=== PATIENT | male | born 1955 | race Caucasian/White ===

== ENCOUNTER 2021-09-25 05:03 | Observation (INO) ==
--- NOTE | 2021-08-28 10:25 | PAT Medication Instructions ---
Medication Instructions Date of Service August 28, 2021 Home Medications Factor 5 Otc 2 tab PO BID PRN Javid Otc 1 - 2 tab PO DAILY Nerve Support Otc 1 tab PO DAILY PRN [place] Q Otc 1 tab PO DAILY cyanocobalamin (vitamin B-12) 5,000 mcg capsule 5,000 mcg PO QPM omeprazole 20 mg capsule,delayed release 20 mg PO DAILY PRN STOP taking 2 weeks before surgery Factor 5 Otc 2 tab PO BID PRN [place] Otc 1 - 2 tab PO DAILY Nerve Support Otc 1 tab PO DAILY PRN [place] Q Otc 1 tab PO DAILY Take morning of surgery With a small sip of water, OTHERWISE NOTHING TO EAT OR DRINK AFTER MIDNIGHT: omeprazole 20 mg capsule,delayed release 20 mg PO DAILY PRN (if needed) Take evening before surgery cyanocobalamin (vitamin B-12) 5,000 mcg capsule 5,000 mcg PO QPM Other Notes If you have any questions please call us at [phone] or [phone] or [phone] or [phone]
--- NOTE | 2021-09-05 11:54 | Anesthesiology Consultation ---
Date of Service September 05, 2021 Assessment & Plan (1) Encounter for pre-operative examination: - PCP pre-op evaluation 09/09/2021 per S records. Optimization form included given 2017 hospitalization records for atrial fibrillation with RVR and documented concern for JEFFREY or COPD. Form to be faxed to PCP office, awaiting PCP clearance. - Simmons/facial hair: mu-ism reasons for patient, aware anesthesiologist may request trimming/shaving am DOS. He verbalized understanding, denied additional questions or concerns. - Patient states plan per discussion with surgeon is to stay overnight after surgery. - COVID screening: Per assessment on 09/05/2021: Travel screen negative, no known COVID-19 positive contacts or current COVID-19 related symptoms in past 2 weeks. Surgeon arranging preop COVID testing, scheduled 09/25/2021 PATRICK Alaniz. Awaiting results. Chart Review Chart Review: Pending: Refer to Additional Notes / Consult section and Patient seen in Pre Admission Testing Teaching & Discussion Pre-Anesthesia Teaching/Discussion Notes: Instructed NPO after midnight before surgery, except medications with 15 cc of water. Medication instructions provid ed according to the PAT guidelines. History Surgery Operation Date: 09/25/21 08:40 Proposed Procedures p Left Total Knee Arthroplasty - Vikram Abraham MD Height/Weight Height: 6 ft Weight: 115.7 kg Allergies Allergy/AdvReac Type Severity Reaction Status Date / Time No Known Allergies Allergy Verified 08/25/21 13:47 Medications Home Medications Medication Instructions Recorded Confirmed Last Taken Factor 5 Otc 2 tab PO BID PRN 08/25/21 08/25/21 Unknown Javid Otc 1 - 2 tab PO DAILY 08/25/21 08/25/21 Unknown Nerve Support Otc 1 tab PO DAILY PRN 08/25/21 08/25/21 Unknown [place] Q Otc 1 tab PO DAILY 08/25/21 08/25/21 Unknown cyanocobalamin (vitamin B-12) 5,000 mcg PO QPM 08/25/21 08/25/21 Unknown 5,000 mcg capsule omeprazole 20 mg capsule,delayed 20 mg PO DAILY PRN 08/25/21 08/25/21 Unknown release Past Medical History Medical History (Updated 09/05/21 @ 15:05 by Dulce Silvestre PA-C) Heartburn History of atrial fibrillation with RVR 05/2017, per [facility] records in setting of pneumonia, acute hypoxemic respiratory failure-Cardizem drip transitioned to oral on discharge w/o anticoagulation recommended-suspicion for JEFFREY or COPD-pt to f/u outpatient with cardio and pulm-last saw PCP 2018 Patient denies h/o stroke, seizures, heart attack, heart failure, DM, HTN, blood clots or blood transfusions. Exercise / Class Metabolic Activity II 4-5 Yardwork/Stairs/Walk up hill (denies CP or SOB with 1 FOS) Past Family History Family History Mother Family history of diabetes mellitus Other No known health problems Past Surgical History Surgical History History of herniorrhaphy LOCAL ANESTHESIA WITH SEDATION Past Anesthesia History No Hx of Anesthesia Complications and No Family Hx of Anesthesia Complications History of PONV No Hx of PONV and No Hx of Motion Sickness Social History Smoking Status: Former smoker (quit 5 yrs ago) Do You Dip or Chew Tobacco: No Hx Alcohol Use: No Hx Substance Use: No Review of Systems Patient denies chest pain, shortness of breath, dyspnea on exertion, snoring, witnessed apneas, fever, chills, cough, wheezing, or palpitations. Physical Exam Vital Signs Vitals BP 122/79 P 83 TEMP 98.7 SP02 95% on RA RESP 17 Physical Long simmons Full cervical extension range of motion without pain Full TMJ range of motion TMD 3.5 finger breaths Mallampati Score 3 Dentition: edentulous Lungs: normal respiratory effort. Clear throughout to auscultation, no adventitious breath sounds Cardiac: regular rate and rhythm, no murmurs noted Carotid arteries: negative bruit bilat Extremities: trace pitting edema distal lower extremities bilat Lab Results Anesthesia Preop Results Results Anesthesia Widget: WBC 8.01 K/uL (4.8-10.8) 09/05/21 Hgb 14.0 g/dL (14.0-18.0) 09/05/21 Hct 41.7 % (42-52) L 09/05/21 Plt 209 K/uL (130-400) 09/05/21 Na 137 mmol/L (136-145) 09/05/21 K 3.9 mmol/L (3.5-5.1) 09/05/21 Cl 103 mmol/L (98-107) 09/05/21 CO2 28 mmol/L (21-32) 09/05/21 BUN 15 mg/dl (6-23) 09/05/21 Creat 1.01 mg/dl (0.6-1.4) 09/05/21 Glucose Level 97 mg/dl (70-99(Fasting)) 09/05/21 PT 10.2 Seconds (9.0-12.0) 09/05/21 PTT 26.5 Seconds (21.0-31.0) 09/05/21 INR 1.0 (0.9-1.1) 09/05/21 HA1c 5.7 % (4.5-5.6) H 09/05/21 Urine Color Yellow 09/05/21 Urine Appearance Clear (Clear) 09/05/21 Urine pH 5.5 (4.5-7.5) 09/05/21 Urine Specific [place] 1.009 (1.000-1.030) 09/05/21 Urine Protein Negative (Negative) 09/05/21 Urine Glucose (UA) Negative (Negative) 09/05/21 Urine Ketones Negative (Negative) 09/05/21 Urine Blood Negative (Negative) 09/05/21 Urine Nitrite Negative (Negative) 09/05/21 Urine Bilirubin Negative (Negative) 09/05/21 Urine Urobilinogen Negative (Negative) 09/05/21 Urine Leukocyte Esterase 1+ (Negative) H 09/05/21 Urine WBC (Auto) 1-5 /hpf (0-5) 09/05/21 Urine RBC (Auto) 5-10 /hpf (0-4) H 09/05/21 Urine Hyaline Casts (Auto) 0 /lpf (0-5) 09/05/21 Urine Epithelial Cells (Auto) 0-5 /lpf (0-5) 09/05/21 Urine Bacteria (Auto) Negative (Negative) 09/05/21 Blood Type A Positive 09/05/21 Antibody Screen NEGATIVE 09/05/21 Testing Electrocardiogram Date: 09/05/21 Poor data quality NSR, rate 78 bpm RBBB Chest X-Ray Date: 09/05/21 FINDINGS: Frontal and lateral radiographs of the chest demonstrate the cardiomediastinal silhouette to be within normal limits. The lungs are hyperinflated with flattening of the hemidiaphragms and increase in the retrosternal space characteristic of underlying chronic obstructive pulmonary disease. The lungs are clear of alveolar opacities. There is no evidence for effusion bilaterally. There is no evidence for vascular congestion. There is no acute osseous pathology. IMPRESSION: 1. No acute cardiopulmonary disease. Evidence for underlying COPD Echocardiogram Date: 06/04/17 EF 55-59% No wall motion abnormalities Moderately enlarged left atrium Mild to moderate mitral regurgitation Dilated IVC Right atrium enlargement Diastolic left ventricular dysfunction Mild tricuspid regurgitation Mild pulmonary regurgitation
--- NOTE | 2021-09-24 07:18 | History & Physical Report ---
Date of Service September 24, 2021 Assessment & Plan (1) Primary osteoarthritis of left knee: Plan: Treatment options discussed with the patient. He has failed conservative measures and would like to proceed with knee replacement. Risks, benefits and alternatives to surgery including but not limited to infection, DVT, pain, stiffness, need for revision surgery, damage to blood vessels, damage to nerves, PE, , were discussed with the patient and they wish to proceed. Plan on left total knee arthroplasty on September 25, [address] Abraham at [facility]. We will plan on aspirin 81 mg twice daily for 1 month postop for DVT prophylaxis. We will likely plan on home health PT postop. All questions were answered. Patient will follow-up postop. History of Present Illness Chief Complaint: Left knee pain Primary Care Provider: NO PCP 65-year-old male with past medical history for GERD and history of A. fib in the past presents with longstanding history of bilateral knee pain. Left worse than the right. Patient severe arthritis bilaterally. Pain is interfering with his daily activities. He has failed conservative measures and would like to proceed with left total knee replacement. Patient denies headaches, sweats, fevers, chills, double vision, blurred vision, cough, sore throat, dysphagia, chest pain, sob, wheezing, n/v/d/c, numbness, tingling, fatigue, urinary symptoms, mood disorders. ROS positive for bilateral pain and stiffness. Allergies Allergy/AdvReac Type Severity Reaction Status Date / Time No Known Allergies Allergy Verified 08/25/21 13:47 Home Medications Medication Instructions Recorded Confirmed Type Factor 5 Otc 2 tab PO BID PRN 08/25/21 08/25/21 History [place] Otc 1 - 2 tab PO DAILY 08/25/21 08/25/21 History Nerve Support Otc 1 tab PO DAILY PRN 08/25/21 08/25/21 History [place] Q Otc 1 tab PO DAILY 08/25/21 08/25/21 History cyanocobalamin (vitamin B-12) 5,000 mcg PO QPM 08/25/21 08/25/21 History 5,000 mcg capsule omeprazole 20 mg capsule,delayed 20 mg PO DAILY PRN 08/25/21 08/25/21 History release Past Med/Surg History Medical History (Updated 09/24/21 @ 07:15 by Jas Bryson PA-C) Heartburn History of atrial fibrillation with RVR 05/2017, per [facility] records in setting of pneumonia, acute hypoxemic respiratory failure-Cardizem drip transitioned to oral on discharge w/o anticoagulation recommended-suspicion for JEFFREY or COPD-pt to f/u outpatient with cardio and pulm-last saw PCP 2018 Surgical History History of herniorrhaphy LOCAL ANESTHESIA WITH SEDATION Family History Mother Family history of diabetes mellitus Other No known health problems Social History (Updated 08/25/21 @ 14:07 by Abby Mayo RN) Smoking Status: Former smoker (quit 5 yrs ago) Second Hand Exposure: Yes ([employer]); Hx Alcohol Use: No Hx Substance Use: No Preferred Language: Pakistani Communication Ability: Effective Control Valve Mechanic Required: No Beliefs That Will Affect Care: Christianity Christianity Beliefs: [facility] Current Living Situation: Family Current Living Situation Comment: LIVES WITH SON,DAUGHTER current occupational status: employed current occupation: WORKS ON [employer] Feels Safe at Home: Yes Assistive Devices: Cane, Denture - Upper, Denture - Lower and Glasses Review of Systems All systems reviewed & are unremarkable except as noted in HPI & below Physical Exam Constitutional: well developed and well nourished; no acute distress Eyes: PERRL, conjunctivae normal, anicteric sclerae ENMT: external ear and nose normal, oropharynx normal Neck: trachea midline, no thyromegaly Respiratory: normal respiratory effort, lungs clear to auscultation Cardiovascular: RRR, no murmur, no edema Musculoskeletal: Left knee: Varus alignment, mild effusion. Tenderness medial joint line. ROM 0-125 degrees. Stable to valgus and varus stress Skin: no rashes, warm and dry Neurologic: patellar DTR's 2+ bilat, sensation intact Psychiatric: A+Ox3, euthymic affect Results & Data (MN) Diagnostic Findings Left knee radiographs: Varus alignment. Bone on bone medial compartment with bone loss medial tibial plateau. There is periarticular osteophyte formation and subchondral sclerosis. There is tricompartmental degenerative changes.
[2021-09-25] MEDS ORDERED: ACETAMINOPHEN 500 MG TAB PO SCH (06:00)
[2021-09-25] MEDS ORDERED: FAMOTIDINE 20 MG TAB PO SCH (06:00)
[2021-09-25] MEDS ORDERED: TRANEXAMIC ACID 1,000 MG **IV Intra-op IV SCH (06:00)
[2021-09-25] MEDS ORDERED: METOCLOPRAMIDE HCL 10 MG TABLET PO SCH (06:00)
[2021-09-25] MEDS ORDERED: ceFAZolin 2000MG 2,000 MG/15 ML SYR IV SCH (06:00)
[2021-09-25] MEDS ORDERED: GABAPENTIN 600 MG DOSE PO SCH (06:00)
[2021-09-25] MEDS ORDERED: dexAMETHasone 4 MG TAB PO SCH (06:00)
[2021-09-25] MEDS ORDERED: TRANEXAMIC ACID 1,000 MG **IV Pre-op IV SCH (06:00)
[2021-09-25] MEDS ORDERED: ROPIVACAINE 0.5% HCL/PF 150 MG, BUPIVACAINE 0.75% MPF 20 ML, EPINEPHrine 30MG/30ML (OR ... INSTIL SCH (06:00)
[2021-09-25] MEDS ORDERED: LR 500ML BOLUS, THEN 15ML/HR IV SCH (06:00)
[2021-09-25] MEDS ORDERED: CeleBREX 200 MG CAP PO SCH (06:00)
[2021-09-25] MEDS ORDERED: MIDAZOLAM HCL 1 MG/ML 2ML VIAL ONE (06:21)
[2021-09-25] MEDS ORDERED: BUPIVACAINE 0.5 % 5 MG/1 ML PF 10ML VIAL ONE (06:23)
[2021-09-25] MEDS ORDERED: ROPIVACAINE 0.5% 5 MG/ML 30 ML VIAL ONE (06:23)
[2021-09-25] MEDS ORDERED: fentaNYL citrate 100 MCG/2 ML VIAL ONE (06:24)
[2021-09-25] MEDS ORDERED: PROPOFOL IV EMULSION 10 MG/ML 20 ML VIAL IV ONE ×3 (06:26→08:32)
[2021-09-25] MEDS ORDERED: ONDANSETRON INJ 2 MG/ML 2 ML VIAL ONE (06:26)
[2021-09-25] MEDS ORDERED: LIDOCAINE 2% 2 ML VIAL/AMP(20MG/ML) INFIL ONE (06:26)
[2021-09-25] MEDS ORDERED: ORTHO JOINT ANESTHETIC ONE (06:45)
--- NOTE | 2021-09-25 07:00 | History & Physical Bridge Note ---
Date of Service September 25, 2021 History & Physical Bridge Note I have examined the patient, reviewed the History & Physical and in the interval since the performance of the History & Physical I have noted the following changes of clinical significance: no changes noted
[2021-09-25] MEDS ORDERED: ePHEDrine sulfate 50 MG/ML AMP IV PRN (07:24)
[2021-09-25] MEDS ORDERED: ATROPINE SULFATE 0.1 MG/ML 10ML SYR IV PRN (07:24)
[2021-09-25] MEDS ORDERED: fentaNYL citrate 100 MCG/2 ML VIAL IV PRN (07:24)
[2021-09-25] MEDS ORDERED: HYDROmorphone INJ 2 MG/ML SYR/VIAL IV PRN (07:24)
[2021-09-25] MEDS ORDERED: PHENYLEPHRINE HCL 10 MG/ML VIAL ONE (07:51)
--- NOTE | 2021-09-25 09:41 | Operative Report ---
Post Operative Report Pre & Post Diagnosis Operation Date: 09/25/21 07:00 Pre-Op Diagnosis: Left Knee Osteoarthritis, bipartite patella Post-Op Diagnosis: Left Knee Osteoarthritis, bipartite patella I identified the patient and participated in the time-out.: Yes Procedure Operation Date: 09/25/21 07:00 Actual Procedures p Left Total Knee Arthroplasty(Left), excision bipartite patella and lateral release and application superficial wound VAC Vikram Abraham MD Surgeon Vikram Abraham MD Boat Hoist Operator Helper Yunier ABARCA Estimated Blood Loss 10 Findings Consistent with Post-Op Diagnosis Specimens Bone cuts Drains 2 Hemovac Anesthesia Type MAC Spinal Regional Complications none Disposition Disposition: Recovery Room Indications 65-year-old male with chronic progressive osteoarthritis of left knee. Radiographs demonstrate [id number] medial compartment with varus knee and bone loss in the medial compartment. Patient also has a bipartite patella and patellofemoral OA. Description of Procedure Patient taken to the operating room the size under spinal MAC regional block anesthesia. Patient was placed supine on the operating table. A pneumatic tourniquet was placed about the left upper thigh. The left lower extremity was prepped and draped in sterile fashion. Knee exam demonstrated mild pseudolaxity medially varus knee 0 through 125 degree range of motion. The leg was elevated exsanguinated with an Esmarch bandage and pneumatic tourniquet was raised to 350 millimeters of mercury. Skin incised sharply in longitudinal fashion. Subcutaneous flaps elevated. Incision was made through the medial retinaculum extending up in the mid third of the quadriceps tendon and down to the medial tibial tubercle. Intra-articular findings demonstrated medial compartment and patellofemoral OA with chronic medial meniscus tear [id number] medial compartment with flattening of the femoral condyle with bone loss medial tibia and some on femoral condyle. Sclerotic eburnated bone. Bipartite patella with instability bipartite patella site. The [facility] total knee arthroplasty system was used. To expose the knee the infrapatellar fat pad was resected. The meniscal remnants and cruciate ligaments were resected. The anterior fat pad over the femur in the area of the anterior flange of the femoral component was resected. Lateral synovial bands release. The femur was exposed. An intramedullary drill hole was made into the canal. A guide vipul was placed. Distal femoral cutting guide was adjusted to resect a 5 degree valgus cut with 8 millimeters distal femur resected. The knee was extended and a subperiosteal peel lateral release was performed around the patella. There was a large unstable bipartite patella fragment which was subperiosteal peeled out from the soft tissues and resected. The patella width was measured and width was reproduced using a freehand cut technique and a 36 x 10 symmetrical patella component. The 3 drill holes were made and the excess lateral facet was beveled off to prevent any impingement. Attention was taken back to the femur which was exposed with retractors and the femoral sizing guide was pinned in position. The drill holes were placed in 3 of external rotation to match epicondylar axis. Femur sized for a 7 component. The 4-in-1 cutting block was placed and then the anterior posterior and chamfer cuts are made. The tibia was then subluxed. The external tibial cutting guide was just to make a perpendicular cut to the long axis of the tibia below the most deficient bone loss side. A lamina supervisor boiler repair was used and the flexion extension gaps were balanced. This required some medial and posterior medial releases. All posterior osteophytes r emoved. All meniscal remnants were resected. The tibia exposed and the trial tibial component size 6 was externally rotated in line with the tibial tubercle and pinned in position. The punch for stem was used. The notch cutting device was centered appropriately and the femoral notch cut was made. The femoral trial was inserted. Trial tibial inserts were placed and size 13 posterior stabilized gave balanced ligaments through flexion and extension. Patella tracking was assessed. The patella tracked with some lateral tilt still so a lateral release was performed leaving the synovium intact and patella tracked centrally. The trial components were then removed and the orthomix anesthetic cocktail was injected per protocol. The knee was then copiously irrigated with pulsatile lavage antibiotic solution. Final components were then cemented with Simplex cement. Final components were [place] triathlon size 7 left posterior stabilized femoral component, size 6 primary tibial baseplate, 6 x 13 posterior stabilized tibial polyethylene and the 36 x 10 symmetrical patella. After the cement cured the Betadine soak was used per protocol. further pulsatile lavage irrigation performed and 2 Hemovac drains were brought out laterally. The quadriceps tendon and medial retinaculum were closed with figure of 8 #1 Vicryl sutures. The knee was taken through full range of motion and the repair was secure. The subcutaneous tissues were closed with 2-0 Vicryl sutures. Skin was closed with carlota. Yann and Acticoat superficial wound VAC was applied. Patient procedure well. Yunier ABARCA was my physician podiatric assistant who functioned as licensed physical therapist assistant through the entire procedure assisting in all aspects of the procedure including patient positioning,prepping and draping,leg positioning ,soft tissue retraction and instrument management and performed the closing and superficial wound VAC application and will participate in postoperative care of the patient. The patient tolerated the procedure well. I attest to the content of the Intraoperative Record and any orders documented therein. Any exceptions are noted below.
--- NOTE | 2021-09-25 10:47 | XRay Report ---
XR knee LT 1 or 2V routine CLINICAL HISTORY: Surgical Post Op. Status post total knee replacement COMPARISON STUDY: No previous studies for comparison. TECHNIQUE: 2 left knee views FINDINGS: The patient is status post total knee replacement. The prosthetic components are in anatomi c alignment with no acute abnormality seen. Air is present within the soft tissues from the procedure . Skin carlota are seen anteriorly. IMPRESSION: 1. Status post total knee replacement. ACT 112: Negative or not required by law. Electronically signed by: Thomas Wilcox M.D. 09/25/2021 10:46 AM
--- NOTE | 2021-09-25 11:07 | Anesthesiology Progress Note ---
Date of Service September 25, 2021 Anesthesia Post Procedure Vital Signs Vital Signs: Temp Pulse Pulse Resp BP Pulse Ox 09/25/21 11:00 36.3 C L 72 16 112/69 94 09/25/21 10:50 71 18 114/67 92 09/25/21 10:40 75 14 112/66 93 09/25/21 10:30 76 21 104/71 94 09/25/21 10:22 36.0 C L 83 19 108/74 93 09/25/21 05:41 36.6 C 76 20 130/85 95 Transfer of Care Handoff Completed per policy Notes Mental Status: alert / awake / arousable Patient Amnestic to Procedure: Yes Nausea / Vomiting: adequately controlled Pain: adequately controlled Airway Patency, RR, SpO2: stable & adequate BP & HR: stable & adequate Hydration State: stable & adequate Neuraxial Anesthesia: was administered and sensory block is resolving Anesthetic Complications: no major complications apparent
[2021-09-25] MEDS ORDERED: METOCLOPRAMIDE HCL INJ 5 MG/ML 2 ML VIAL IV PRN (11:36)
[2021-09-25] MEDS ORDERED: oxyCODONE HCL IR 5 MG TAB (IMMEDIATE RELEASE) PO PRN (11:36)
[2021-09-25] MEDS ORDERED: HYDROmorphone INJ 0.5 MG/0.5 ML SYR IV PRN (11:36)
[2021-09-25] MEDS ORDERED: bisacodyL 10 MG SUPP PR PRN (11:36)
[2021-09-25] MEDS ORDERED: MAGNESIUM HYDROXIDE SUSP 30 ML UDC PO PRN (11:36)
[2021-09-25] MEDS ORDERED: NALOXONE HCL 0.4 MG/1 ML VIAL/CARP IV PRN (11:36)
[2021-09-25] MEDS ORDERED: TAMSULOSIN HCL 0.4 MG CAP PO PRN (11:36)
[2021-09-25] MEDS ORDERED: ONDANSETRON INJ 2 MG/ML 2 ML VIAL IV PRN (11:36)
[2021-09-25] MEDS ORDERED: PANTOprazole 40 MG TAB PO PRN (11:48)
[2021-09-25] MEDS: SODIUM CHLORIDE 0.9% 1000ML 1,000 ML IV SCH ×2 (12:17→22:29)
--- NOTE | 2021-09-25 12:35 | Hospitalist Consultation ---
Date of Consultation September 25, 2021 Assessment & Plan (1) Primary osteoarthritis of left knee: Post-op Day #0 Left TKR - Pain control, activity, DVT prophylaxis per primary service - Encourage incentive spirometry - PT/OT per primary service (2) Heartburn: - Continue outpatient PPI therapy Patient was seen and evaluated with collaborating physician, Dr. Fierro. Plan of care discussed and as outlined above. Thank you for this consultation. We will continue to follow the patient with you. [facility] available 08/02 via [employer] - please don't hesitate to reach out with questions or concerns. Efe Adkins PA-C History of Present Illness Reason for Consultation: Post-op Med Management Requesting Physician: Vikram Abraham MD Attending Physician: Vikram Abraham MD History of Present Illness This is a 65 y/o male with a PMH of atrial fibrillation in 2017, osteoarthritis, and GERD who underwent left TKR today by Dr. Abraham and for which we have consulted for post-operative med management. Pt was seen by PCP on 09/09/21 for pre-operative evaluation and no specific issues noted. He is seen post- operatively and has no specific complaints. He has some mild left knee pain but denies numbness, tingling in LE. He denies chest pain, palpitaitons, SOB, KAN, dizziness, N/V. He was able to tolerate lunch without difficulties. He reports that he has been using the incentive spirometer and can max out the capacity. Allergies Allergy/AdvReac Type Severity Reaction Status Date / Time No Known Allergies Allergy Verified 09/25/21 05:35 Home Medications Medication Instructions Recorded Confirmed Type Factor 5 Otc 2 tab PO BID PRN 08/25/21 09/25/21 History [place] Otc 1 - 2 tab PO DAILY 08/25/21 09/25/21 History Nerve Support Otc 1 tab PO DAILY PRN 08/25/21 09/25/21 History [place] Q Otc 1 tab PO DAILY 08/25/21 09/25/21 History cyanocobalamin (vitamin B-12) 5,000 mcg PO QPM 08/25/21 09/25/21 History 5,000 mcg capsule omeprazole 20 mg capsule,delayed 20 mg PO DAILY PRN 08/25/21 09/25/21 History release Patient History Medical History Heartburn History of atrial fibrillation with RVR 05/2017, per [facility] records in setting of pneumonia, acute hypoxemic respiratory failure-Cardizem drip transitioned to oral on discharge w/o anticoagulation recommended-suspicion for JEFFREY or COPD-pt to f/u outpatient with cardio and pulm-last saw PCP 2018 Obesity Surgical History History of herniorrhaphy LOCAL ANESTHESIA WITH SEDATION Family History Mother Family history of diabetes mellitus Other No known health problems Social History Smoking Status: Former smoker (quit 5 yrs ago) Second Hand Exposure: Yes (SON SMOKES); Do You Dip or Chew Tobacco: No; Hx Alcohol Use: No Hx Substance Use: No Preferred Language: Chinese Communication Ability: Effective Casing Finisher And Stuffer Required: No Beliefs That Will Affect Care: Orthodox Orthodox Beliefs: [facility] Current Living Situation: Family Current Living Situation Comment: LIVES WITH SON,DAUGHTER current occupational status: employed current occupation: WORKS ON HIS FARM Other Information That Helps Us Care for You: No Feels Safe at Home: Yes Safety Concerns: Feels Safe At This Time Assistive Devices: Cane, Denture - Upper, Denture - Lower and Glasses Assistive Devices Comment: CANE PRN Review of Systems Review of Systems: All systems reviewed & are unremarkable except as noted in HPI & below Constitutional: no fever, no chills and no sweats Eyes: no diplopia Ear, Nose, Mouth, Throat: no nasal congestion, no nasal discharge and no sore throat Respiratory: no cough and no wheezing Cardiovascular: no chest pain, no palpitations, no syncope and no edema Gastrointestinal: no abdominal pain, no nausea, no vomiting and no diarrhea/loose stools Genitourinary: no urinary frequency or no hematuria Musculoskeletal: + joint pain; no back pain and no neck pain Integumentary: no rash Neurologic: no falls and no generalized weakness Psychiatric: no depression and no anxiety Physical Exam Constitutional: well developed and well nourished; no acute distress Eyes: + anicteric sclerae ENMT: external ear and nose normal, oropharynx normal Neck: trachea midline Respiratory: no respiratory distress and no labored breathing Auscultation: lungs clear to auscultation bilaterally; no rales, no rhonchi and no wheezes Cardiovascular: Rate/Rhythm: regular rate and regular rhythm Vessels: dorsalis pedis pulses present and radial pulses present Extremities: no pedal edema Gastrointestinal (Abdomen): Inspection/Auscultation: normal bowel sounds; abdomen not distended Percussion/Palpation: abdomen soft; abdomen nontender Musculoskeletal: Head/Neck/Chest: normocephalic, head atraumatic and neck supple Left knee with drain in place with sanguinous drainage, dressing C/D/I Skin: no jaundice Neurologic: moves all extremities; no focal motor deficits Psychiatric: A+Ox3, euthymic affect Results & Data Results & Data ([facility]) Vital Signs (Past 12 Hours) Vital Signs Temp Pulse Pulse Resp BP Pulse Ox 09/25/21 12:14 69 18 110/73 94 09/25/21 11:50 36.3 C L 70 16 113/75 94 09/25/21 11:00 36.3 C L 72 16 112/69 94 09/25/21 10:50 71 18 114/67 92 09/25/21 10:40 75 14 112/66 93 09/25/21 10:30 76 21 104/71 94 09/25/21 10:22 36.0 C L 83 19 108/74 93 09/25/21 05:41 36.6 C 76 20 130/85 95 Laboratory Results 09/25/21 Unknown SARS-CoV-2, RNA, NAAT NEGATIVE Medications Administered Acetaminophen (Acetaminophen 500 Mg Tab) 1,000 mg PO PREOP SUJATHA Stop: 09/25/21 18:00 Last Admin: 09/25/21 06:14 Dose: 1,000 mg Documented by: [id number] Celecoxib (Celebrex 200 Mg Cap) 200 mg PO PREOP SUJATHA Stop: 09/25/21 18:00 Last Admin: 09/25/21 06:15 Dose: 200 mg Documented by: [id number] Dexamethasone (Dexamethasone 4 Mg Tab) 8 mg PO PREOP SUJATHA Stop: 09/25/21 18:00 Last Admin: 09/25/21 06:15 Dose: 8 mg Documented by: [id number] Famotidine (Famotidine 20 Mg Tab) 20 mg PO PREOP SUJATHA Stop: 09/25/21 18:00 Last Admin: 09/25/21 06:15 Dose: 20 mg Documented by: [id number] Gabapentin (Gabapentin 600 Mg Dose) 600 mg PO PREOP SUJATHA Stop: 09/25/21 18:00 Last Admin: 09/25/21 06:15 Dose: 600 mg Documented by: [id number] Lactated Ringer's (Lr) 1,000 mls @ 15 mls/hr IV .Q24H SUJATHA Stop: 09/25/21 18:00 Last Infusion: 09/25/21 07:18 Dose: 0 mls/hr Documented by: [id number] Admin: 09/25/21 06:15 Dose: 15 mls/hr Documented by: [id number] Cefazolin Sodium (Ancef 2000mg) 2,000 mg in 15 mls @ 3.75 mls/min IV PREOP SUJATHA; Protocol Stop: 09/25/21 18:00 Last Admin: 09/25/21 07:18 Dose: 3.75 mls/min Documented by: [id number] Tranexamic Acid (Tranexamic Acid / 0.7% Nacl) 1,000 mg in 100 mls @ 600 mls/hr IV TODAY@0600 SUJATHA Stop: 09/25/21 18:00 Last Infusion: 09/25/21 07:13 Dose: 0 mls/hr Documented by: [id number] Admin: 09/25/21 07:02 Dose: 600 mls/hr Documented by: [id number] Tranexamic Acid (Tranexamic Acid / 0.7% Nacl) 1,000 mg in 100 mls @ 600 mls/hr IV TODAY@0600 SUJATHA Stop: 09/25/21 18:00 Last Infusion: 09/25/21 10:01 Dose: 0 mls/hr Documented by: [id number] Admin: 09/25/21 09:14 Dose: 600 mls/hr Documented by: [id number] Sodium Chloride (Nss 1000ml) 1,000 mls @ 100 mls/hr IV .Q10H SUJATHA Stop: 09/26/21 06:00 Last Admin: 09/25/21 12:17 Dose: 100 mls/hr Documented by: [id number] Metoclopramide HCl (Metoclopramide Hcl 10 Mg Tablet) 10 mg PO PREOP SUJATHA Stop: 09/25/21 18:00 Last Admin: 09/25/21 06:15 Dose: 10 mg Documented by: [id number] Discontinued Medications Ropivacaine 150 mg/Bupivacaine HCl 20 ml/Epinephrine HCl 0.15 mg/Ketorolac Tromethamine 30 mg/Dexamethasone 4 mg/ Ketamine HCl 10 mg/ Clonidine HCl 100 mcg/ Sodium Chloride 88.35 mls @ 0 mls/hr INSTIL TODAY@0600 [facility]; Protocol Stop: 09/25/21 06:01 Last Admin: 09/25/21 08:13 Dose: 93.35 mls/hr Documented by: [id number] Miscellaneous (Ortho Joint Anesthetic ) Confirm Administered Dose 1 ea .ROUTE .STK-MED ONE Stop: 09/25/21 06:46 Last Admin: 09/25/21 08:14 Dose: Not Given Documented by: [id number]
[2021-09-25] MEDS: ACETAMINOPHEN 500 MG TAB PO SCH ×2 (14:19→21:11)
--- NOTE | 2021-09-25 16:25 | Hospitalist Consultation ---
Date of Consultation September 25, 2021 Assessment & Plan (1) Primary osteoarthritis of left knee: Post-op Day #0 Left TKR - Pain control, activity, DVT prophylaxis per primary service - Encourage incentive spirometry - PT/OT per primary service (2) Heartburn: - Continue outpatient PPI therapy Patient was seen and evaluated with collaborating physician, Dr. Fierro. Plan of care discussed and as outlined above. Thank you for this consultation. We will continue to follow the patient with you. A member of the [facility] Hospitalist team is available 08/02 via [employer] - please don't hesitate to reach out with questions or concerns. Efe Adkins PA-C History of Present Illness Reason for Consultation: Post-operative Medical Management Requesting Physician: Dr. Vikram Abraham Attending Physician: Vikram Abraham MD History of Present Illness This is a 65 y/o male with a PMH of GERD and hx of atrial fibrillation in 2017 when acutely ill who underwent left total knee replacement today by Dr. Abraham. We have been consulted for post-operative medical management. Pt denies prior history of issues with anesthesia. He has had no recurrent of atrial fibrillation since 2017. He is seen post-operatively and reports no complaints. He has some mild left knee pain but no numbness or tingling in the LE. Able to move toes without difficulty. He denies chest pain, palpitations, shortness of breath, dizziness, N/V/D. He tolerated lunch without issues. He has been using the incentive spirometer and is able to max it out already. Allergies Allergy/AdvReac Type Severity Reaction Status Date / Time No Known Allergies Allergy Verified 09/25/21 05:35 Home Medications Medication Instructions Recorded Confirmed Type Factor 5 Otc 2 tab PO BID PRN 08/25/21 09/25/21 History [place] Otc 1 - 2 tab PO DAILY 08/25/21 09/25/21 History Nerve Support Otc 1 tab PO DAILY PRN 08/25/21 09/25/21 History [place] Q Otc 1 tab PO DAILY 08/25/21 09/25/21 History cyanocobalamin (vitamin B-12) 5,000 mcg PO QPM 08/25/21 09/25/21 History 5,000 mcg capsule omeprazole 20 mg capsule,delayed 20 mg PO DAILY PRN 08/25/21 09/25/21 History release Patient History Medical History Heartburn History of atrial fibrillation with RVR 05/2017, per [facility] records in setting of pneumonia, acute hypoxemic respiratory failure-Cardizem drip transitioned to oral on discharge w/o anticoagulation recommended-suspicion for JEFFREY or COPD-pt to f/u outpatient with cardio and pulm-last saw PCP 2018 Obesity Surgical History History of herniorrhaphy LOCAL ANESTHESIA WITH SEDATION Family History Mother Family history of diabetes mellitus Other No known health problems Social History Smoking Status: Former smoker (quit 5 yrs ago) Second Hand Exposure: Yes (SON SMOKES); Do You Dip or Chew Tobacco: No; Hx Alcohol Use: No Hx Substance Use: No Preferred Language: Yakut Communication Ability: Effective Recycling Or Rubbish Collector Required: No Beliefs That Will Affect Care: Yazdanism Yazdanism Beliefs: [facility] Current Living Situation: Family Current Living Situation Comment: LIVES WITH SON,DAUGHTER current occupational status: employed current occupation: WORKS ON HIS FARM Other Information That Helps Us Care for You: No Feels Safe at Home: Yes Safety Concerns: Feels Safe At This Time Assistive Devices: Cane, Denture - Upper, Denture - Lower and Glasses Assistive Devices Comment: CANE PRN Review of Systems Constitutional: no fever, no chills and no sweats Eyes: no diplopia Ear, Nose, Mouth, Throat: no nasal congestion, no nasal discharge and no sore throat Respiratory: no cough and no wheezing Cardiovascular: no chest pain, no palpitations, no syncope and no edema Gastrointestinal: no abdominal pain, no nausea, no vomiting and no diarrhea/loose stools Genitourinary: no urinary frequency or no hematuria Musculoskeletal: + joint pain; no back pain and no neck pain Integumentary: no rash Neurologic: no falls and no generalized weakness Psychiatric: no depression and no anxiety Physical Exam Constitutional: well developed and well nourished; no acute distress Eyes: + anicteric sclerae ENMT: external ear and nose normal, oropharynx normal Neck: trachea midline Respiratory: no respiratory distress and no labored breathing Auscultation: lungs clear to auscultation bilaterally; no rales, no rhonchi and no wheezes Cardiovascular: Rate/Rhythm: regular rate and regular rhythm Vessels: dorsalis pedis pulses present and radial pulses present Extremities: no pedal edema Gastrointestinal (Abdomen): Inspection/Auscultation: normal bowel sounds; abdomen not distended Percussion/Palpation: abdomen soft; abdomen nontender Musculoskeletal: Head/Neck/Chest: normocephalic, head atraumatic and neck supple Skin: no jaundice Neurologic: moves all extremities; no focal motor deficits Psychiatric: A+Ox3, euthymic affect Results & Data Results & Data ([facility]) Vital Signs (Past 12 Hours) Vital Signs Temp Pulse Pulse Resp BP Pulse Ox 09/25/21 14:10 36.3 C L 85 16 110/69 93 09/25/21 13:06 36.3 C L 73 18 111/74 95 09/25/21 12:14 69 18 110/73 94 09/25/21 11:40 36.3 C L 70 16 113/75 94 09/25/21 11:00 36.3 C L 72 16 112/69 94 09/25/21 10:50 71 18 114/67 92 09/25/21 10:40 75 14 112/66 93 09/25/21 10:30 76 21 104/71 94 09/25/21 10:22 36.0 C L 83 19 108/74 93 09/25/21 05:41 36.6 C 76 20 130/85 95 Laboratory Results 09/25/21 Unknown SARS-CoV-2, RNA, NAAT NEGATIVE Medications Administered Acetaminophen (Acetaminophen 500 Mg Tab) 1,000 mg PO PREOP SUJATHA Stop: 09/25/21 18:00 Last Admin: 09/25/21 06:14 Dose: 1,000 mg Documented by: [id number] Acetaminophen (Acetaminophen 500 Mg Tab) 1,000 mg PO Q8 SUJATHA Stop: 10/25/21 13:59 Last Admin: 09/25/21 14:19 Dose: 1,000 mg Documented by: [id number] Celecoxib (Celebrex 200 Mg Cap) 200 mg PO PREOP SUJATHA Stop: 09/25/21 18:00 Last Admin: 09/25/21 06:15 Dose: 200 mg Documented by: [id number] Dexamethasone (Dexamethasone 4 Mg Tab) 8 mg PO PREOP SUJATHA Stop: 09/25/21 18:00 Last Admin: 09/25/21 06:15 Dose: 8 mg Documented by: [id number] Famotidine (Famotidine 20 Mg Tab) 20 mg PO PREOP SUJATHA Stop: 09/25/21 18:00 Last Admin: 09/25/21 06:15 Dose: 20 mg Documented by: [id number] Gabapentin (Gabapentin 600 Mg Dose) 600 mg PO PREOP SUJATHA Stop: 09/25/21 18:00 Last Admin: 09/25/21 06:15 Dose: 600 mg Documented by: [id number] Lactated Ringer's (Lr) 1,000 mls @ 15 mls/hr IV .Q24H SUJATHA Stop: 09/25/21 18:00 Last Infusion: 09/25/21 07:18 Dose: 0 mls/hr Documented by: [id number] Admin: 09/25/21 06:15 Dose: 15 mls/hr Documented by: [id number] Cefazolin Sodium (Ancef 2000mg) 2,000 mg in 15 mls @ 3.75 mls/min IV PREOP SUJATHA; Protocol Stop: 09/25/21 18:00 Last Admin: 09/25/21 07:18 Dose: 3.75 mls/min Documented by: [id number] Tranexamic Acid (Tranexamic Acid / 0.7% Nacl) 1,000 mg in 100 mls @ 600 mls/hr IV TODAY@0600 SUJATHA Stop: 09/25/21 18:00 Last Infusion: 09/25/21 07:13 Dose: 0 mls/hr Documented by: [id number] Admin: 09/25/21 07:02 Dose: 600 mls/hr Documented by: [id number] Tranexamic Acid (Tranexamic Acid / 0.7% Nacl) 1,000 mg in 100 mls @ 600 mls/hr IV TODAY@0600 SUJATHA Stop: 09/25/21 18:00 Last Infusion: 09/25/21 10:01 Dose: 0 mls/hr Documented by: [id number] Admin: 09/25/21 09:14 Dose: 600 mls/hr Documented by: [id number] Sodium Chloride (Nss 1000ml) 1,000 mls @ 100 mls/hr IV .Q10H SUJATHA Stop: 09/26/21 06:00 Last Admin: 09/25/21 12:17 Dose: 100 mls/hr Documented by: [id number] Metoclopramide HCl (Metoclopramide Hcl 10 Mg Tablet) 10 mg PO PREOP [facility] Stop: 09/25/21 18:00 Last Admin: 09/25/21 06:15 Dose: 10 mg Documented by: [id number] Discontinued Medications Ropivacaine 150 mg/Bupivacaine HCl 20 ml/Epinephrine HCl 0.15 mg/Ketorolac Tromethamine 30 mg/Dexamethasone 4 mg/ Ketamine HCl 10 mg/ Clonidine HCl 100 mcg/ Sodium Chloride 88.35 mls @ 0 mls/hr INSTIL TODAY@0600 [facility]; Protocol Stop: 09/25/21 06:01 Last Admin: 09/25/21 08:13 Dose: 93.35 mls/hr Documented by: [id number] Miscellaneous (Ortho Joint Anesthetic ) Confirm Administered Dose 1 ea .ROUTE .STK-MED ONE Stop: 09/25/21 06:46 Last Admin: 09/25/21 08:14 Dose: Not Given Documented by: [id number]
[2021-09-25] MEDS: ceFAZolin 2000MG 2,000 MG/15 ML SYR IV SCH (18:24)
[2021-09-25] MEDS ORDERED: SENNA 8.6 MG TAB PO SCH (21:00)
[2021-09-25] MEDS ORDERED: CYANOCOBALAMIN (B-12) 2,500 MCG TABLET SL SCH (21:00)
[2021-09-25] MEDS: CeleBREX 200 MG CAP PO SCH (21:10)
[2021-09-25] MEDS: ASPIRIN 81 MG ECTAB PO SCH (21:11)
[2021-09-25] MEDS: DOCUSATE SODIUM 100 MG CAP PO SCH (21:12)
[2021-09-26] MEDS: ceFAZolin 2000MG 2,000 MG/15 ML SYR IV SCH (00:39)
[2021-09-26] MEDS: ACETAMINOPHEN 500 MG TAB PO SCH ×2 (06:08→13:21)
[2021-09-26 07:24] LABS: Hematocrit (blood only) 36.1 % (42-52); Hemoglobin 12.2 g/dL (14.0-18.0); Mean Corpuscular Hemoglobin 32.4 pg (25-34); Mean Corpuscular Hgb Conc 33.8 g/dL (32-36); Mean Corpuscular Volume 95.8 fL (80-100); Mean Platelet Volume 9.4 fL (7.4-10.4); Platelet Count 216 K/uL (130-400); RDW Coefficient of Variation 13.8 % (11.5-14.5); RDW Standard Deviation 48.3 fL (36.4-46.3); Red Blood Count 3.77 M/uL (4.7-6.1); White Blood Count 17.64 K/uL (4.8-10.8)
[2021-09-26 08:02] LABS: BUN Creatinine Ratio 17.6 (10-20); Creatinine Clr Calc Pharmacy 115.1 ml/min; Est GFR (African American) 107.5 ml/min; Est GFR (Non-African American) 92.7 ml/min; Potassium 3.8 mmol/L (3.5-5.1)
[2021-09-26] MEDS: ASPIRIN 81 MG ECTAB PO SCH (08:41)
[2021-09-26] MEDS: CeleBREX 200 MG CAP PO SCH (08:41)
[2021-09-26] MEDS: DOCUSATE SODIUM 100 MG CAP PO SCH (08:41)
[2021-09-26] MEDS ORDERED: MULTIVITAMIN TAB PO SCH (09:00)
--- NOTE | 2021-09-26 09:42 | Orthopedic Progress Note ---
Date of Service September 26, 2021 Assessment & Plan (1) Primary osteoarthritis of left knee: Plan: POD [address] Abraham this AM as well. PT/OT protocols. WBAT. DVT prophylaxis - ASA bid, SCD's, TAVARES's Pain management as written DC planning - Outpt PT upon dc. Plan for discharge to home today. Admission and Anticipated Discharge Date Admission Date: September 25, 2021 Subjective POD 1 Pt sitting in chair at bedside. No complaints this AM. Comfortable. Pain controlled. Denies SOB,CP,LH Physical Exam Physical Exam: Dressings C/D/I. Calves soft, NT. NV intact. Toes mobile. Good DF/PF noted. HV drainage Results & Data ([facility]) Vital Signs (Past 12 Hours) Vital Signs Temp Pulse Resp BP Pulse Ox 09/26/21 07:31 36.4 C L 73 16 122/80 96 09/26/21 03:47 36.6 C 80 18 120/73 93 09/25/21 23:52 36.5 C 77 18 111/63 92 Laboratory Results Laboratory Results WBC 17.64 K/uL (4.8-10.8) H 09/26/21 07:00 RBC 3.77 M/uL (4.7-6.1) L 09/26/21 07:00 Hgb 12.2 g/dL (14.0-18.0) L 09/26/21 07:00 Hct 36.1 % (42-52) L 09/26/21 07:00 MCV 95.8 fL (80-100) 09/26/21 07:00 MCH 32.4 pg (25-34) 09/26/21 07:00 MCHC 33.8 g/dL (32-36) 09/26/21 07:00 RDW Std Deviation 48.3 fL (36.4-46.3) H 09/26/21 07:00 RDW Coeff of Vee 13.8 % (11.5-14.5) 09/26/21 07:00 Plt Count 216 K/uL (130-400) 09/26/21 07:00 MPV 9.4 fL (7.4-10.4) 09/26/21 07:00 Sodium 136 mmol/L (136-145) 09/26/21 07:00 Potassium 3.8 mmol/L (3.5-5.1) 09/26/21 07:00 Chloride 105 mmol/L (98-107) 09/26/21 07:00 Carbon Dioxide 27 mmol/L (21-32) 09/26/21 07:00 Anion Gap 4 (3-11) 09/26/21 07:00 BUN 15 mg/dl (6-23) 09/26/21 07:00 Creatinine 0.85 mg/dl (0.6-1.4) 09/26/21 07:00 Est Cr Clr Drug Dosing 115.1 ml/min 09/26/21 07:00 Est GFR ( Amer) 107.5 ml/min 09/26/21 07:00 Est GFR (Non-Af Amer) 92.7 ml/min 09/26/21 07:00 BUN/Creatinine Ratio 17.6 (10-20) 09/26/21 07:00 Glucose 101 mg/dl (70-99(Fasting)) H 09/26/21 07:00 Calcium 8.0 mg/dl (8.5-10.1) L 09/26/21 07:00 SARS-CoV-2, RNA, NAAT NEGATIVE (NEGATIVE) 09/25/21 Unknown Impressions Knee X-Ray 09/25/21 10:30 XR knee LT 1 or 2V routine CLINICAL HISTORY: Surgical Post Op. Status post total knee replacement COMPARISON STUDY: No previous studies for comparison. TECHNIQUE: 2 left knee views FINDINGS: The patient is status post total knee replacement. The prosthetic components are in anatomic alignment with no acute abnormality seen. Air is present within the soft tissues from the procedure. Skin carlota are seen anteriorly. IMPRESSION: 1. Status post total knee replacement. ACT 112: Negative or not required by law. Electronically signed by: Thomas Wilcox M.D. 09/25/2021 10:46 AM
--- NOTE | 2021-09-26 14:19 | Hospitalist Progress Note ---
Date of Service September 26, 2021 Assessment & Plan (1) Primary osteoarthritis of left knee: Plan: Post-op Day #1 Left TKR - Pain control, activity, DVT prophylaxis per primary service -Tolerated procedure well - Encourage incentive spirometry - PT/OT per primary service -Hgb 12.2 (2) Heartburn: Plan: - Continue outpatient PPI therapy DVT prophylaxis ASA 81 mg twice daily as per Ortho Plan: Thank you for this consultation. We will follow the patient with you during their hospital stay. You can reach a member of the [facility] Hospitalist Team 08/02 via the [facility] role in [place] [employer]. Admission and Anticipated Discharge Date Admission Date: September 25, 2021 Supervising Physician Co-Signing Physician Notes Patient was seen and examined independently. Chart was reviewed. Case was discussed with HIRA. Agree with assessment and plan as above Subjective Patient seen and examined. Follow-up for postop medical management. Patient sitting up in the chair. Reports his pain is well controlled. No chest pain or shortness of breath. Denies abdominal pain or nausea. Urinating without difficulty, + flatus. Review of Systems Review of Systems: ROS per HPI, all other systems reviewed and negative Physical Exam Constitutional: WD/WN, vitals as above Respiratory: normal respiratory effort, lungs clear to auscultation Cardiovascular: Rate/Rhythm: regular rate and regular rhythm Vessels: normal peripheral pulses Extremities: no edema Gastrointestinal (Abdomen): Percussion/Palpation: abdomen soft; abdomen nontender Musculoskeletal: S/p left knee surgery, dressing CDI, drain in place, CSM checks intact to LLE Skin: no rashes, warm and dry Neurologic: no focal motor deficits Psychiatric: A+Ox3, euthymic affect Results & Data Results & Data ([facility]) Vital Signs (Past 12 Hours) Vital Signs Temp Pulse Pulse Resp BP Pulse Ox 09/26/21 11:19 36.4 C L 72 73 16 122/80 96 09/26/21 07:31 36.4 C L 73 16 122/80 96 09/26/21 03:47 36.6 C 80 18 120/73 93 Laboratory Results Short CBC 09/26/21 Range/Units 07:00 WBC 17.64 H (4.8-10.8) K/uL Hgb 12.2 L (14.0-18.0) g/dL Hct 36.1 L (42-52) % Plt Count 216 (130-400) K/uL BMP 09/26/21 07:00 Sodium 136 Potassium 3.8 Chloride 105 Carbon Dioxide 27 BUN 15 Creatinine 0.85 Glucose 101 H Calcium 8.0 L
--- NOTE | 2021-09-29 07:52 | Discharge Summary ---
Date of Service September 29, 2021 Admission HPI Per Admitting Provider 65-year-old male with past medical history for GERD and history of A. fib in the past presents with longstanding history of bilateral knee pain. Left worse than the right. Patient severe arthritis bilaterally. Pain is interfering with his daily activities. He has failed conservative measures and would like to proceed with left total knee replacement. Patient denies headaches, sweats, fevers, chills, double vision, blurred vision, cough, sore throat, dysphagia, chest pain, sob, wheezing, n/v/d/c, numbness, tingling, fatigue, urinary symptoms, mood disorders. ROS positive for bilateral pain and stiffness. Admission Exam Per Admitting Provider Constitutional: well developed and well nourished; no acute distress Eyes: PERRL, conjunctivae normal, anicteric sclerae ENMT: external ear and nose normal, oropharynx normal Neck: trachea midline, no thyromegaly Respiratory: normal respiratory effort, lungs clear to auscultation Cardiovascular: RRR, no murmur, no edema Musculoskeletal: Left knee: Varus alignment, mild effusion. Tenderness medial joint line. ROM 0-125 degrees. Stable to valgus and varus stress Skin: no rashes, warm and dry Neurologic: patellar DTR's 2+ bilat, sensation intact Psychiatric: A+Ox3, euthymic affect Principal Diagnosis Left knee osteoarthritis Discharge Exam Dressings C/D/I. Calves soft, NT. NV intact. Toes mobile. Good DF/PF noted. HV drainage Constitutional well developed and well nourished; no acute distress Discharge Data Allergies Allergy/AdvReac Type Severity Reaction Status Date / Time No Known Allergies Allergy Verified 09/25/21 05:35 Consultations 09/22/21 16:17 Consult Hospitalist Routine Procedures Performed Operation Date: 09/25/21 07:00 Actual Procedures p Left Total Knee Arthroplasty(Left) - Vikram Abraham MD Ordered Studies 09/25/21 05:00 US - OR guided needle placemen Routine Hospital Course (1) Primary osteoarthritis of left knee: Patient presented for same day admission following left total knee arthroplasty on 09/25/21. He tolerated procedure well. The Patient had an uneventful hospital course. Post-operatively, his activity was progressed and well tolerated. They participated in PT with ambulation distance of 150 feet. ROM of operative knee reached 70 degrees. Labs remained stable- lowest hemoglobin recorded:12.2. Dr. Lorne Fierro of medical service was consulted for medical management during admission. Pain controlled on oral medications. Please refer to daily progress notes and PT notes for complete details. After exam on 09/26/21, patient was felt to be stable for discharge home with plans on OPPT. Patient will f/u in the office in about 2 weeks for further evaluation including x-rays and incision check, sooner if having any issues or concerns. POD [address] Abraham this AM as well. PT/OT protocols. WBAT. DVT prophylaxis - ASA bid, SCD's, TAVARES's Pain management as written DC planning - Outpt PT upon dc. Plan for discharge to home today. Lab Results 09/25/21 09/26/21 09/26/21 Range/Units Unknown 07:00 07:00 WBC 17.64 H (4.8-10.8) K/uL RBC 3.77 L (4.7-6.1) M/uL Hgb 12.2 L (14.0-18.0) g/dL Hct 36.1 L (42-52) % MCV 95.8 (80-100) fL MCH 32.4 (25-34) pg MCHC 33.8 (32-36) g/dL RDW Std Deviation 48.3 H (36.4-46.3) fL RDW Coeff of Vee 13.8 (11.5-14.5) % Plt Count 216 (130-400) K/uL MPV 9.4 (7.4-10.4) fL Sodium 136 (136-145) mmol/L Potassium 3.8 (3.5-5.1) mmol/L Chloride 105 (98-107) mmol/L Carbon Dioxide 27 (21-32) mmol/L Anion Gap 4 (3-11) BUN 15 (6-23) mg/dl Creatinine 0.85 (0.6-1.4) mg/dl Est Cr Clr Drug Dosing 115.1 ml/min Est GFR ( Amer) 107.5 ml/min Est GFR (Non-Af Amer) 92.7 ml/min BUN/Creatinine Ratio 17.6 (10-20) Glucose 101 H (70-99(Fasting)) mg/dl Calcium 8.0 L (8.5-10.1) mg/dl SARS-CoV-2, RNA, NAAT NEGATIVE (NEGATIVE) Total Time Total Time Spent Total Time Spent (In Minutes): 20 Discharge Plan Discharge Items Patient Disposition: Home - Self-Care Reason For Visit: Left Knee Osteoarthritis Discharge Diagnosis: Left knee osteoarthritis Activity: Per Instructions section Weightbearing: Full weightbearing Weightbearing Comment: as tolerated with walker Non-emergency contact: Surgeon Call non-emergency contact if: you have any medication questions, your pain is not controlled, your pain is concerning for you, you have a fever, your temperature is above 101, your wound has increased redness and your wound has increased drainage Follow-up/Referrals: PCP,NO [Physician] - Diet: Regular Addtl Attending Provider Instructions: ACTIVITY RECOMMENDATIONS: SELF CARE INSTRUCTIONS AFTER TOTAL KNEE REPLACEMENT A. You may need to continue a physical therapy program after discharge from the hospital. There are several options available to you. Your doctor will assist you in selecting the best one for you. 1. An out-patient facility 2 to 3 times a week for therapy or home therapy. 2. Continue working on all exercises taught to you in the hospital. Your goals should be to increase bending of your knee to 90 degrees and beyond and to fully straighten your knee. B. You may progress at your own pace from walking with a walker or crutches to a cane; then to no assistive devices. C. Make walking a part of your daily routine. Be up as much as comfortable with rest periods throughout the day. Rest with leg elevation is very important. Use the ice wrap frequently for the first 3-4 weeks. D. There are no restrictions on activities. You may ride in a car, shop, participate in baffle mounter and all social activities. E. Wear the long elastic stockings (TAVARES hose) 20 hours a day for 2 weeks after surgery. They can be removed several times a day for laundering and for a bath. F. You may shower, no tub baths until cleared by your doctor. SPECIAL CARE INSTRUCTIONS: VERY IMPORTANT TO READ AND REVIEW A. There are a few signs you need to watch for after you are home. Call [facility] if you notice any of the followin. Increased severe knee pain. Some pain is expected especially when you exercise. 2. Increased swelling in your leg or knee; pain or swelling of the calf muscle in either lower leg. 3. Any fluid drainage from the incision. 4. Shortness of breath or chest pain. B. Please call [facility] at if you have any concerns or questions about your operation or recovery. The doctor or his nurse will return your call promptly. C. You must take antibiotics before dental work, bladder, bowel or other surgery. Your doctor will provide you with a permanent care to carry describing this precaution. IMPORTANT: * REMEMBER TO TAKE ASPIRIN, 81 MG, TWICE DAILY FOR 4 WEEKS UNLESS OTHERWISE DIRECTED. THIS IS YOUR BLOOD THINNER. * HIGH RISK PATIENTS MAY BE PRESCRIBED A STRONGER BLOOD THINNER. THIS WILL BE PROVIDED AT DISCHARGE. * CALL IF INCREASED PAIN, REDNESS, DRAINAGE OR FEVER GREATER THAT 101. * WEAR TAVARES HOSE 20 HOURS PER DAY FOR 2 WEEKS. This is a large suction dressing covering your incision. This will help pull any excess drainage from the wound and allow your incision to heal properly. You may shower with this if you can keep the unit outside of the shower. If any bleeding or leakage is noted please call your doctor's office. This will remain on your incision for 7 days and then should be removed. This can be done yourself or by the home nursing staff if applicable. The entire unit is disposable once removed. Once removed, keep incision clean and dry. If redness or drainage is noted, please call your surgeon. IF INCISION IS LEAKING THROUGH DRESSING, CALL THE OFFICE . FOLLOW UP VISIT: If appointment is not already scheduled: Please call [facility] to make a follow-up appointment for 2 weeks after your surgery at . Stand-Alone Forms: My [employer] Closures, Smoking Cessation Medications and DC Order Prescriptions: New aspirin 81 mg Tablet,Delayed Release (Dr/Ec) 81 mg PO BID 14 Days Qty: 28 RF: 0 acetaminophen [Tylenol Extra Strength] 500 mg Tablet 1,000 mg PO Q8 14 Days Qty: 84 RF: 0 polyethylene glycol 3350 [Miralax] 17 gram powder in packet 17 g PO DAILY PRN (Reason: constipation) Qty: 5 RF: 0 oxycodone 5 mg Tablet 5 mg PO Q4H MDD 6 PRN (Reason: pain) Qty: 30 RF: 0 Continued Factor 5 Otc 2 tab PO BID PRN (Reason: Pain) RF: 0 cyanocobalamin (vitamin B-12) 5,000 mcg Capsule 5,000 mcg PO QPM RF: 0 Javid Otc 1 - 2 tab PO DAILY RF: 0 Nerve Support Otc 1 tab PO DAILY PRN (Reason: Pain) RF: 0 omeprazole 20 mg Capsule,Delayed Release(Dr/Ec) 20 mg PO DAILY PRN (Reason: Acid Reflux) RF: 0 Discontinued Forgan Q Otc 1 tab PO DAILY RF: 0 Discharge Orders: Discharge Order (Routine); Ordered 09/26/21 Ordered By: Joesph Coates Admission Data Admit Date/Time: 09/25/21 10:30 Attending Provider: Vikram Abraham Admit Provider: Vikram Abraham Primary Care Provider: Edil Root I. Other Providers: Bonnie Banks ; Pamela Miranda ; Lorne Fierro ; Fanny Adkins ; Alexandra Ochoa ; Trish Tucker ; Jeanne Lynn ; Santi Worrell ; Jimmy Horton ; Raphael Espinal ; Patti Sharma HJerry ; Ruthann Martinez ; Moustapha Mcqueen ; Janki Munoz ; Shiela Trotter ; Ted Juarez ; Nikky Vasquez ; Magaly Horne ; Carin Pruitt ; Kaleigh Alarcon I. ; Balaji Campbell ; Jelani Stearns ; Calista Copeland ; Pancho Santos ; Last Snell ; Mj Mccarty A. Other Interventions: Discharge Summary Assessment (RN) Last Done: 09/26/21 11:19
== END 2021-09-26 14:09 | disposition home or self-care (01) ==
LOC: ASU 05:03 → 3N 05:03